=== PATIENT | female | born 1985 | race Caucasian/White ===

== ENCOUNTER 2018-06-02 16:33 | Inpatient (IN) ==
[2018-06-02] MEDS ORDERED: Acetaminophen 325 MG Tablet PO PRN ×2 (22:24→22:25)
[2018-06-03] MEDS: Aluminum/Magnesium/Simethacone Susp 30 ML UDC PO PRN (04:42)
[2018-06-03] MEDS: Sertraline 50 MG Tablet PO SCH (09:30)
[2018-06-03] MEDS: ChlorproMAZINE 50 MG Tablet PO SCH ×2 (09:30→20:42)
[2018-06-03 10:17] LABS: Baso % (Auto) 0.2 % (0.0-2.0); Eos % (Auto) 0.4 % (0.0-4.0); Hemoglobin 14.5 gm/dL (11.6-15.3); Lymph # (Auto) 1.8 th/mm3 (1.0-4.8); Lymph % (Auto) 17.4 % (9.0-44.0); Mean Corpuscular HGB Conc 33.6 % (32.0-36.0); Mean Corpuscular Hemoglobin 30.5 pg (27.0-34.0); Mean Corpuscular Volume 90.8 fL (80.0-100.0); Mean Platelet Volume 8.3 fL (7.0-11.0); Mono # (Auto) 0.7 th/mm3 (0.0-0.9); Mono % (Auto) 6.3 % (0.0-8.0); Neut % (Auto) 75.7 % (16.0-70.0); Platelet Count 374 th/mm3 (150-450); Red Blood Count 4.74 mil/mm3 (4.00-5.30); Red Cell Distribution Width 13.2 % (11.6-17.2); White Blood Count 10.6 th/mm3 (4.0-11.0)
[2018-06-03 10:47] LABS: Albumin 4.1 g/dL (3.4-5.0); Anion Gap 9 meq/L (5-15); Aspartate Aminotransferase 15 U/L (15-37); Blood Urea Nitrogen 6 mg/dL (7-18); Calcium 9.4 mg/dL (8.5-10.1); Carbon Dioxide 23.3 meq/L (21.0-32.0); Chloride 105 meq/L (98-107); Glomerular Filtration Rate Greater Than 89 mL/min (>89); Glucose,Random 95 mg/dL (74-106); Potassium 3.2 meq/L (3.5-5.1); Sodium 137 meq/L (136-145)
[2018-06-03 10:48] LABS: Alanine Aminotransferase 15 U/L (10-53); Cholesterol 166 mg/dL (120-200); Triglycerides 74 mg/dL (42-150)
[2018-06-03 10:58] LABS: Alkaline Phosphatase 50 U/L (45-117); HDL Cholesterol 51.8 mg/dL (40.0-60.0); LDL Cholesterol,Calculated 99 mg/dL (0-99); Thyroid Stimulating Hormone 0.406 uIU/mL (0.358-3.740); Total Protein 8.1 g/dL (6.4-8.2)
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
--- NOTE | 2018-06-03 23:37 | ECG ---
Date Performed: 06/03/2018 Time Performed: 16:57:21 PTAGE: 32 years EKG: Sinus rhythm EARLY REPOLARIZATION BORDERLINE ECG Compared to PREVIOUS TRACING , rate has decreased DOCTOR: Aram oMrrow Interpretating Date/Time 06/03/2018 23:36:44
[2018-06-04] MEDS: LORazepam 1 MG Tablet PO PRN (04:34)
[2018-06-04] MEDS: ChlorproMAZINE 50 MG Tablet PO SCH (08:39)
[2018-06-04] MEDS: Sertraline 50 MG Tablet PO SCH (08:39)
[2018-06-04] MEDS: Aluminum/Magnesium/Simethacone Susp 30 ML UDC PO PRN (13:57)
--- NOTE | 2018-06-04 15:48 | P.PNPSY ---
Subjective Remarks: Patient seen for follow, chart reviewed. Discussion nursing staff reported the patient pleasant, cooperative with staff. Patient was found participating in group, calm and cooperative. She states that the AH a "a little fuzzy", worse when its quiet. She states that the voices comment on her life and recently stating " threats" which she last experienced yesterday. She states continually feeling paranoid. Slept well, improved appetite, mood has been "better". Spoke with family which went well. Review of Systems All other systems reviewed negative except as stated in HPI Mental Status Examination Appearance: Appropriate Consciousness: Alert Orientation: x4 Motor Activity: Normal gait Speech: Unremarkable Language: Adequate Fund of Knowledge: Inadequate Attention and Concentration: Adequate Memory: Unremarkable Mood: Other ("better") Affect: Sad (lessening) Thought Process & Associations: Linear Thought Content: Bizarre thinking, Delusional Hallucination Type: Auditory Delusion Type: Paranoid, Other (persecutory) Suicidal Ideation: Yes Suicidal Plan: No Suicidal Intention: No Homicidal Ideation: No Homicidal Plan: No Homicidal Intention: No Insight: Fair Judgment: Impulsive Assessment and Plan - Assessment (1) Schizophrenia Code(s): F20.9 - Schizophrenia, unspecified Status: Acute - Plan Plan: Patient reports lessening in intensity of AH, less depressed and improved appetite. Will continue to titrate Seroquel to 50mg am/100mg HS for psychosis. Continue rest of medications, discharge planning in progress. Justification for Continued Inpatient Stay: At risk for further decompensation at lower level of care.
[2018-06-05] MEDS: LORazepam 1 MG Tablet PO PRN ×2 (03:46→13:46)
[2018-06-05] MEDS: ChlorproMAZINE 50 MG Tablet PO SCH (09:37)
[2018-06-05] MEDS: Sertraline 50 MG Tablet PO SCH (09:38)
[2018-06-05] MEDS ORDERED: Sertraline 50 MG Tablet PO ONE (11:15)
--- NOTE | 2018-06-05 18:37 | P.PNPSY ---
Subjective Remarks: Patient seen for follow, chart reviewed. Discussion nursing staff reported the patient slept last evening, continues to have auditory hallucinations to kill others. Patient was found in blade on unit noted B, cooperative. Patient states she is feeling better continues report auditory hallucinations but they are "muffled" is able to at times and understand that they tell her that she is in trouble "a lot of stuff that they are saying is not true". Patient states that she is aware that these are auditory hallucinations intrusive and disturbing with her was noted affecting her mood as well. Patient noted be tearful during interview as well. Patient reports having slept well last evening, having good appetite and improved mood. Patient denies any suicide ideations, denies any command auditory hallucinations but reports feeling somewhat depressed. Review of Systems All other systems reviewed negative except as stated in HPI Mental Status Examination Appearance: Appropriate Consciousness: Alert Orientation: x4 Motor Activity: Normal gait Speech: Unremarkable Language: Adequate Fund of Knowledge: Inadequate Attention and Concentration: Adequate Memory: Unremarkable Mood: Other ("good") Affect: Sad (lessening) Thought Process & Associations: Linear Thought Content: Bizarre thinking Hallucination Type: Auditory Delusion Type: Paranoid, Other (persecutory) Suicidal Ideation: No Suicidal Plan: No Suicidal Intention: No Homicidal Ideation: No Homicidal Plan: No Homicidal Intention: No Insight: Fair Judgment: Impulsive Assessment and Plan - Assessment (1) Schizophrenia Code(s): F20.9 - Schizophrenia, unspecified Status: Acute - Plan Plan: He reported having improvement in mood continues report feeling depressed along with continue auditory hallucinations and noncommand in nature. we will increase sertraline to 50 mg p.o. daily for depression, increase Thorazine to 50 mg a.m./150 mg at bedtime for psychosis. We will continue to monitor mood and behavior. Discharge planning in progress. Justification for Continued Inpatient Stay: At risk for further decompensation if at lower level of care.
[2018-06-06] MEDS: LORazepam 1 MG Tablet PO PRN (03:00)
[2018-06-06 05:02] VITALS: BP 119/76; PULSE 78; RESP 16; TEMP 98; O2SAT 98
[2018-06-06] MEDS: ChlorproMAZINE 50 MG Tablet PO SCH (08:28)
[2018-06-06] MEDS ORDERED: Sertraline 50 MG Tablet PO SCH (09:00)
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
== END 2018-06-06 17:25 | disposition home or self-care (01) ==
LOC: H270 21:40 → H260 06-04 13:09
PROVIDERS: ADMIT Student in an Organized Health Care Education/Training Program; ATTEND Student in an Organized Health Care Education/Training Program